=== PATIENT | male | born 1955 | race Caucasian/White ===

== ENCOUNTER 2016-12-27 22:01 | Emergency (ER) | payer OTHER ==
[~2016-12-27] VITALS: Ht 185.4 cm; Wt 95.5 kg
[2016-12-27 22:03] VITALS: BP 132/83; RESP 46; O2SAT 99
--- NOTE | 2016-12-27 23:57 | ED.REPORT ---
HPI-General Illness Date of Service Dec 27, 2016 ED Provider: Candido Josue MD 61 year old male presents to the ER accompanied by his complaining of throat swelling onset earlier today. Associated symptoms include subjective fever and chills. Last week he had an episode of similar that resolved on its own. Patient denies productive cough, and any significant underlying medical conditions. He states that he has chronic sinusitis with associated post-nasal drainage, and admits to recent exposure to co-worker with nasal congestion. Nursing Notes Stated Complaint: THROAT CLOSING UP Chief Complaint: ENT & Mouth Nursing Notes Reviewed: Yes Allergies: Coded Allergies: No Known Allergies (Unverified , 12/27/16) Scheduled Fluticasone Propionate (Flonase Allergy Relief) 50 Mcg/Actuation [place].susp 1 SPRAY NS BID General Time Seen by MD: 23:57 Chief Complaint Other (Throat Swelling) Hx Obtained From: Patient Arrived By: Walk-in Sudden in Onset?: No Onset Occurred: 1 - 4 hours ago Symptom Duration: Since onset Associated with: Reports: Fever (subjective) Additional Notes: Chills Past Medical History Past Medical History Chronic sinusitis Smoking History Unknown if Ever Smoker Social History Other Social History: Good social support, Ambulatory Status Independent Unable to Obtain History Past medical history Review of Systems Full Review of Systems Constitutional: Reports: Chills, Fever (subjective) Ears / Nose / Throat: Reports: Sore throat, Throat swelling, Voice change Respiratory: Denies: Non-productive cough, Shortness of breath GI: Denies: Abdominal pain, Diarrhea, Nausea, Vomiting Complete sys rev & neg: except as marked. Physical Exam Vital Signs Vital Signs Date Time Temp Pulse Resp B/P Pulse Ox O2 Delivery O2 Flow Rate FiO2 12/27/16 22:03 36.3 74 46 132/83 99 Room Air Initial VS: Reviewed General/Constitutional: Well-developed, Well-nourished Head / Eyes: Atraumatic, Normocephalic Neck: Supple, Non-tender, Full range of motion Abdomen / GI: Soft, Non-tender, No guarding, No rebound, No distention Lymphatic: No lymphadenopathy Extremities: Vascular intact, Neuro intact, No swelling, No tenderness Skin: Warm, Dry, No cyanosis Neurologic: Alert, Oriented, Nonfocal ENT: Airway patent, Mucous membranes moist Granular, swollen, pale pharynx. Respiratory / Chest: Breath sounds NL, No respiratory distress, No rales, No rhonchi, No wheezing Cardiovascular: Heart rate NL, Regular rhythm, Heart sounds NL, Cap refill not delayed, Peripheral circulation NL Interpretation & Diagnostics Lab Results Interpretation Result Diagram: 12/27/165 12/27/16 2345 Test 12/27/16 23:45 White Blood Count 9.4th/mm3 (3.8-10.1) Red Blood Count 5.00mil/mm3 (4.40-5.80) Hemoglobin 15.0g/dL (13.8-17.2) Hematocrit 43.8% (41.0-50.0) Mean Corpuscular Volume 88fL (81-100) Mean Corpuscular Hemoglobin 30.0pg (27.0-35.0) Mean Corpuscular Hemoglobin Concent 34.2% (32.0-37.0) Red Cell Distribution Width 12.1% (12.3-15.4) Platelet Count 213bil/L (150-400) Neutrophils (%) (Auto) 65.8% (40-74) Lymphocytes (%) (Auto) 24.9% (14-46) Monocytes (%) (Auto) 7.8% (4-12) Eosinophils (%) (Auto) 1% (0-5) Basophils (%) (Auto) 0.5% (0-3) Sodium Level 140mEq/L (134-144) Potassium Level 4.3mEq/L (3.5-5.2) Chloride Level 105mEq/L (97-108) Carbon Dioxide Level 21mmol/L (18-29) Blood Urea Nitrogen 31mg/dL (8-27) Creatinine 1.22mg/dL (0.76-1.27) Estimat Glomerular Filtration Rate 64mL/min (>59) Glucose Level 104mg/dL (60-99) Calcium Level 9.1mg/dL (8.5-10.1) Total Bilirubin 0.5mg/dL (0.0-1.2) Aspartate Amino Transf (AST/SGOT) 26U/L (0-50) Alanine Aminotransferase (ALT/SGPT) 26U/L (0-44) Alkaline Phosphatase 62U/L (25-160) Total Protein 6.9g/dL (6.4-8.4) Albumin 4.2g/dL (3.4-5.0) Hold Mcmahan Top Tube Received (Received) Re-Eval/Medical Decision Med Decision/Clinical Course 61-year-old with chronic sinus congestion and sinusitis intermittently, presents with some drainage, raspy voice, but no fevers chills sweats and no other signs of bacterial infection. His nose exam shows pale granular edematous mucosae and appears consistent with allergic rhinitis. He had previously been prescribed Flonase but had not filled it. He was encouraged to do that. Brief course of Afrin suggested. Follow up with PCP. No indication for antibiotics at this time. Source of Hx: Old records Time of Eval: 00:20 Re-Evaluation/Progress Note: Discussed lab results and physical examination findings and plan to discharge. Patient is amenable to the plan. Return precautions given. All other questions addressed. Counseled Regarding: Diagnosis, Lab results, Need for follow-up, When/why to return to ED Discharge & Departure Primary Impression: Allergic rhinitis Additional Impressions: Upper respiratory infection Sinusitis Disposition: Home Discharge Condition All VS Reviewed: Yes Condition: Stable Patient Instructions: Allergic Rhinitis (ED), Sinusitis (DC), Upper Respiratory Infection (ED) Additional Instructions: Begin your Flonase twice daily and continue through the spring season. May use Afrin at night for three nights consecutively then stopped for at least two. Do this to get a dry nose and a lot of sleep without drainage overnight Follow-up with your doctor in the office Return if any mediations. I do not believe antibiotics will be helpful in this setting. Referrals: Gino Soliz MD (PCP) Annette Calhoun MD Attestation Portions of this note were transcribed by Jevon Quiroz. I, Dr. Josue, personally performed the history, physical exam and medical decision-making; I reviewed and confirmed the accuracy of the information in the transcribed note. Signed by: Manav Sinclair. 12/28/2016 - 00:21 copies to: Gino Soliz MD; Annette Calhoun MD, Christopher W MD Dec 27, 2016 23:57 JEVON QUIROZ Dec 28, 2016 00:05
[2016-12-28] MEDS ORDERED: FLUT9.9S NS (00:18)
[2016-12-28 00:28] LABS: BASOPHILS % (AUTO) 0.5 % (0-3); EOSINOPHILS % (AUTO) 1 % (0-5); MONOCYTES % (AUTO) 7.8 % (4-12); Mean Corpuscular Volume 88 fL (81-100); NEUTROPHILS % (AUTO) 65.8 % (40-74); Platelet Count 213 bil/L (150-400)
== END 2016-12-28 00:25 | disposition left against medical advice (07) ==
LOC: SED 22:01
DX: J30.9 Allergic rhinitis, unspecified (principal); J32.9 Chronic sinusitis, unspecified; J06.9 Acute upper respiratory infection, unspecified